=== PATIENT | male | born 1995 | race Caucasian/White ===

== ENCOUNTER 2016-09-16 14:51 | Emergency (ER) | payer OTHER ==
[~2016-09-16] VITALS: Ht 167.6 cm; Wt 132.1 kg
[2016-09-16 14:55] VITALS: BP 144/85
== END 2016-09-16 16:37 | disposition home or self-care (01) ==
LOC: ED 16:15
DX: M25.531 Pain in right wrist (principal)
CPT/HCPCS: 29125